=== PATIENT | male | born 1940 | race African-American/Black ===

== ENCOUNTER → 2017-10-29 | Outpatient (CLI) | payer OTHER ==
[~2017-10-29] MED LIST: ALLOPURINOL 30300 M2 PO; ASPIR 8181 MG PO; BACTRIM DS TAB1 EACH PO; IRON CHEWS15 M1 PO; MAXZIDE-25 MG1 EACH PO; MELATONIN3 MG PO; NAPROSYN500 MG PO; PRINIVIL20 MG PO; ZOCOR20 MG PO
== END ==
LOC: RAD 11:23
DX: J98.11 Atelectasis (principal); I10 Essential (primary) hypertension

== ENCOUNTER → 2017-10-30 | Outpatient (CLI) | payer OTHER | LOC: CAT 10:42 | DX: R91.8 Other nonspecific abnormal finding of lung field (principal); R59.0 Localized enlarged lymph nodes ==

== ENCOUNTER → 2017-11-25 | Outpatient (CLI) | payer OTHER | LOC: CAT 11:53 | DX: I67.82 Cerebral ischemia (principal); M47.816 Spondylosis without myelopathy or radiculopathy, lumbar region; M51.26 Other intervertebral disc displacement, lumbar region; C34.90 Malignant neoplasm of unspecified part of unspecified bronchus or lung; M25.78 Osteophyte, vertebrae; M48.061 Spinal stenosis, lumbar region without neurogenic claudication; I10 Essential (primary) hypertension ==

== ENCOUNTER 2018-01-06 09:05 | Inpatient (IN) | payer OTHER ==
[~2018-01-06] VITALS: Ht 182.9 cm; Wt 83.9 kg
--- NOTE | ~2018-01-06 | EKG ---
[place] [address] [facility] [place] [address] ELECTROCARDIOGRAM REPORT Name: ALLYSSA HATFIELD JR Room #: 170-9 ADM IN M.R.#: [id number] Admission: 01/06/18 Attend Phys: Anika Hurd Discharge: Date of : 40 Report #: [id number] THIS REPORT FOR: //name// [facility] ED Test Date: 2018-01-06 Test Time: 09:24:21 Pat Name: ALLYSSA HATFIELD Department: Room: 170 Gender: M Medical Detailist: natasha : 1940 Requested By: Faye Canchola Order Number: [id number] MD: Hermelindo Dias Measurements Intervals [place] Rate: 94 P: -3 SC: 158 QRS: -16 QRSD: 89 T: -17 QT: 341 QTc: 427 Interpretive Statements Sinus tachycardia Multiform ventricular premature complexes Left ventricular hypertrophy Compared to ECG 08/07/1991 16:20:00 Electronically Signed On 01-06-2018 13:06:36 CDT by Hermelindo Dias [email or web address] <ELECTRONICALLY SIGNED> By: Hermelindo Dias MD 01/06/18 1306 3 3 Hermelindo Dias MD /FRAN
--- NOTE | ~2018-01-06 | HC ---
[facility] [place] [address] CONSULTATION Name: ALLYSSA HATFIELD JR Room #: 200-I ADM IN M.R.#: [id number] Admission: 01/06/18 Attend Phys: Anika Hurd Discharge: Date of : 40 Report #: [id number] THIS REPORT FOR: //name// CC: Nabeel Sanchez MD REASON FOR CONSULTATION: History of lung cancer with generalized weakness. CONSULTATION REQUESTED BY: Anika Hurd M.D. HISTORY OF PRESENT ILLNESS: The patient is a very pleasant 77-year-old gentleman who I met for the first time on 12/24/2017. 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 At that time, he was having significant pain and we consulted Dr. Nabeel Yanes, Radiation Oncology for therapy. The patient began radiation therapy on 12/31/2017 and had his fourth dose on 01/03/2018. This is out of planned 10 doses. The patient reports that yesterday he had been at home and was weak enough he had a hard time getting off the toilet seat. It sounds like he has not been eating and drinking as well. He has also been not moving around. It sounds like this is not a specific localized weakness. He denies any new sensory changes. He has not had any incontinence of bowel or bladder. PAST MEDICAL HISTORY: Past history is notable for the recently diagnosed stage IV lung cancer. Note that he had had an MRI of the head on 11/25/2017 that did not show any disease there. His PET scan was on 12/20/2017 and that showed the disease in the lung and some mediastinal, subcarinal and retrocrural lymph nodes. He also has a history of hypertension, hyperlipidemia and some bladder difficulties. SOCIAL AND FAMILY HISTORY: Mother had breast cancer. Father had diabetes and blood clots. He had smoked for about 47 years, quit in 2003. Alcohol, maybe a glass of wine and 6 cans of beer periodically. He is currently retired. PHYSICAL EXAMINATION: GENERAL: The patient appears his stated age. VITAL SIGNS: His height is 6 feet or 182.8 cm. Weight is 185 pounds or 83.9 kilograms. Blood pressure is 150/80, O2 sat 98%, respirations 20, pulse 97 and temperature 100.3 orally. MOOD: The patient is slightly withdrawn and quiet and slow to answer questions, though he is methodical and intentional in his answers. HEENT: Oropharynx clear. [facility] [address] [place] [address] CONSULTATION Name: ALLYSSA HATFIELD Room #: 200-I [facility] IN M.R.#: [id number] Admission: 01/06/18 Attend Phys: Anika Hurd Discharge: Date of : 40 Report #: [id number] LUNGS: Mostly clear anteriorly. HEART: Regular rate. LYMPHATIC: No enlarged lymph nodes in the supraclavicular, cervical, axillary or inguinal region. ABDOMEN: Slightly obese. No masses. Not tender, though the patient thinks he may be constipated. EXTREMITIES: Without clubbing, cyanosis or edema. NEUROLOGIC: He seems like he is moving extremities and has normal sensation. LABORATORY DATA: Lab results here are notable for a BUN of 21, creatinine 1.3. AST is slightly high at 40. Calcium is slightly high at 10.2. Albumin was normal range at 3.4. White count 13.9, hemoglobin 12.4 and platelets 244,000. U/A was negative for nitrites and clear. MEDICATIONS: Medications in the hospital currently include flu vaccine will be given, also hydralazine p.r.n., tamsulosin 0.4 at bedtime, Senokot, S4 tabs b.i.d., Lovenox 40 mg at bedtime subq, morphine p.r.n., hydrocodone 1 tab q.4h. p.r.n., Tylenol p.r.n., zolpidem p.r.n., MiraLax p.r.n., nitroglycerin p.r.n. and Zofran p.r.n. ASSESSMENT AND PLAN: 1. Stage IV squamous cell cancer, direct invasion into the vertebral body and ribs. Recent MRI last night does not show any neural involvement. Suspect the weakness is due to deconditioning and pain. We will wish to restart radiation therapy once an outpatient. 2. Pain. Agree with current medications. He had been on prednisone with benefit and may consider restarting to see if this helps with his pain. 3. Hypertension, p.r.n. hydralazine. 4. Bladder difficulties, tamsulosin. 5. Prophylaxis, Lovenox. 6. Possible constipation, MiraLax and Senokot S. <ELECTRONICALLY SIGNED> By: Inocente Fry MD 01/08/18 0731 0931 [id number] Inocente Fry MD /nt
--- NOTE | ~2018-01-06 | HC ---
[facility] [place] [address] CONSULTATION Name: ALLYSSA HATFIELD JR Room #: 220-P [facility] IN M.R.#: [id number] Admission: 01/06/18 Attend Phys: Anika Hurd Discharge: Date of : 40 Report #: [id number] THIS REPORT FOR: //name// CC: Dipak Hurd HISTORY OF PRESENT ILLNESS: The patient is a 77-year-old male with a history of lung cancer and bilateral lower extremity weakness. When I spoke to the patient, he seemed uncertain as to whether or not he had cancer and what type of cancer he had. His came in the room later and explained to me that he had lung cancer, but he had been having weakness some time before he was actually diagnosed. She and her had downsized in 2013 and since that time, he had become more inactive; in fact, he had been having difficulty walking and had pain in his legs, some months prior to the diagnosis. He had been having difficulty getting up from the toilet, but had also just been having difficulty walking in general. His was a better historian than the patient. Apparently, the patient had generalized weakness, but had also been having chest pain related to the radiation treatment for lung cancer. PAST MEDICAL HISTORY: Stage IV invasive squamous cell carcinoma of the lung, hypertension, hyperlipidemia, gout. PAST SURGICAL HISTORY: Tonsillectomy, hemorrhoidectomy, nasal reconstruction. MEDICATIONS: Oxycodone 7.5 mg q.6h. p.r.n. pain, prednisone 40 mg daily, amlodipine 10 mg daily, tamsulosin 0.4 mg daily, torsemide 10 mg daily, tramadol 50 mg p.r.n., aspirin 81 mg daily, naproxen 500 mg b.i.d., simvastatin 5 mg at bedtime. ALLERGIES: VIOXX. PHYSICAL EXAMINATION: VITAL SIGNS: Temperature 37, pulse rate 104, respiratory rate 17, blood pressure 102/70, bedside pulse oximetry 95% on room air. LABORATORY WORK: White blood cell count 13.1, hemoglobin 11.3, hematocrit 33.6, MCV 76.6, platelet count 197,000. Urinalysis, trace blood. Chemistry: Sodium 135, potassium 3, chloride 102, carbon dioxide 26, BUN 13, creatinine 1.1, GFR 79, glucose 97, calcium 9.2, magnesium 2.2. IMAGING EXAMS: MRI of the thoracic spine showed several large right chest masses with invasion into the medial portions of the right 3rd and 4th ribs as well as the right third vertebral body. An additional mass was seen in the lower chest invading the posterior portion of the right 7th rib. MRI of the head demonstrated no acute intracranial process. [address] [address] CONSULTATION Name: ALLYSSA HATFIELD Room #: 220-P [facility] IN M.R.#: [id number] Admission: 01/06/18 Attend Phys: Anika Hurd Discharge: Date of : 40 Report #: [id number] NEUROLOGIC EXAMINATION: Cranial nerves 2-12 are grossly intact. Motor exam demonstrated symmetrical generalized weakness in the lower extremities with tone and bulk normal. Reflexes were trace throughout. Coordination demonstrated no evidence of dysmetria. IMPRESSION: I reviewed the patient's medical record. I explained to him that a CT scan of the lumbar spine showed that he had lumbar spinal stenosis and this may account for some of the symptoms he had prior to the diagnosis of lung cancer. I explained to him that spinal stenosis causes a generalized type weakness of the lower extremities and that sometimes when you walk, this causes pain and when you sit down, the pain is relieved. This may have led to just a generalized deconditioning. I explained to him that there is no evidence of cancer of the spine. He does not really have neck pain, but also admits to having some weakness in the upper extremities. For further evaluation, I have ordered an MRI of the cervical and thoracic spine and we will discuss these results with the patient tomorrow. I thank you for your kind referral of the patient. <ELECTRONICALLY SIGNED> By: Roseanne Corral DO 01/10/18 0952 [id number] [id number] Roseanne Corral DO /nt
[~2018-01-06 09:05] MED LIST changes: +DEMADEX20 MG PO; +FLOMAX0.4 MG PO; +NORVASC10 MG PO; +TRAMADOL 50 MG50 MG PO
[2018-01-06 09:06] VITALS: BP 159/104
[2018-01-06 09:26] LABS: ABSOLUTE NEUTROPHILS 12.4 thou/uL (1.4-8.2); BASOPHILS 0.3 % (0.0-2.0); EOSINOPHILS 0.1 % (0.0-3.0); HEMATOCRIT 37.2 % (42.0-52.0); HEMOGLOBIN 12.4 gm/dL (14.0-18.0); LYMPHOCYTES 4.4 % (24.0-44.0); MCH 25.6 pg (26.0-34.0); MCHC 33.4 g/dL (28.0-37.0); MCV 76.7 fL (80.0-100.0); PLATELET COUNT 244 thou/uL (150-400); POLYS 89.2 % (36.0-66.0); RBC 4.85 mil/uL (4.50-6.00); RDW 15.9 % (10.5-14.5); WBC 13.9 thou/uL (4.0-11.0)
[2018-01-06 09:33] LABS: ANION GAP 8 mmol/L (7-16); BUN 21 mg/dL (7-18); CALCIUM 10.2 mg/dL (8.5-10.1); CHLORIDE 102 mmol/L (98-107); CO2 29 mmol/L (21-32); CREATININE 1.3 mg/dL (0.7-1.3); GLUCOSE 124 mg/dL (74-106); POTASSIUM 3.3 mmol/L (3.5-5.1); SODIUM 139 mmol/L (136-145)
[2018-01-06 09:41] LABS: ALBUMIN 3.4 g/dL (3.4-5.0); SGOT 40 U/L (15-37); SGPT 20 U/L (30-65); TOTAL BILIRUBIN 1.1 mg/dL (<0.1-1.0); TROPONIN-I <0.06 ng/mL (<0.06)
[2018-01-06 10:31] LABS: URINE BILIRUBIN NEGATIVE (Negative); URINE BLOOD TRACE (Negative); URINE CLARITY CLEAR; URINE COLOR YELLOW; URINE GLUCOSE-RANDOM* NEGATIVE (Negative); URINE KETONES NEGATIVE (Negative); URINE LEUKOCYTES-REFLEX NEGATIVE (Negative); URINE NITRITE-REFLEX NEGATIVE (Negative); URINE PROTEIN (DIPSTICK) NEGATIVE (Negative); URINE UROBILINOGEN 0.2 E.U./dl (0.2-1.0)
[2018-01-06 11:18] VITALS: BP 159/104
[2018-01-06] MEDS ORDERED: OXYCODONE HCL15 MG PO (14:48)
[2018-01-06] MEDS ORDERED: PREDNISONE 10 M10 M1 PO (14:49)
[2018-01-06 15:26] VITALS: BP 182/106
[2018-01-06 19:31] VITALS: BP 181/106
[2018-01-07 04:00] VITALS: BP 170/92
[2018-01-07 07:51] VITALS: BP 150/88
[2018-01-07 12:05] VITALS: BP 113/80
[2018-01-07 13:28] LABS: HEMATOCRIT 33.6 % (42.0-52.0); HEMOGLOBIN 11.3 gm/dL (14.0-18.0); MCH 25.7 pg (26.0-34.0); MCHC 33.5 g/dL (28.0-37.0); MCV 76.6 fL (80.0-100.0); RBC 4.39 mil/uL (4.50-6.00); RDW 15.5 % (10.5-14.5); WBC 13.1 thou/uL (4.0-11.0)
[2018-01-07 13:43] LABS: ALBUMIN 2.6 g/dL (3.4-5.0); CALCIUM 9.5 mg/dL (8.5-10.1); CREATININE 1.2 mg/dL (0.7-1.3); TOTAL BILIRUBIN 1.9 mg/dL (<0.1-1.0); TOTAL PROTEIN 6.8 g/dL (6.4-8.2)
[2018-01-07 15:07] VITALS: BP 136/83
[2018-01-07 17:25] LABS: CALCIUM 9.2 mg/dL (8.5-10.1); CREATININE 1.1 mg/dL (0.7-1.3); MAGNESIUM 2.2 mg/dL (1.8-2.4)
[2018-01-07 19:23] VITALS: BP 144/88
[2018-01-07 22:44] VITALS: BP 144/88
[2018-01-08 03:56] VITALS: BP 163/98
[2018-01-08 12:25] VITALS: BP 102/70
[2018-01-08 19:28] VITALS: BP 125/83
[2018-01-09 03:37] LABS: ALBUMIN 2.5 g/dL (3.4-5.0); CREATININE 1.1 mg/dL (0.7-1.3); MAGNESIUM 2.1 mg/dL (1.8-2.4); PHOSPHORUS 2.4 mg/dL (2.5-4.9); POTASSIUM 3.7 mmol/L (3.5-5.1)
[2018-01-09 05:16] VITALS: BP 187/114
[2018-01-09 06:30] VITALS: BP 172/102
[2018-01-09 08:54] VITALS: BP 168/100
[2018-01-09 12:32] VITALS: BP 148/80
[2018-01-09 20:24] VITALS: BP 149/108
[2018-01-09 23:30] VITALS: BP 177/108
[2018-01-10 04:00] VITALS: BP 183/111; BP 195/125
[2018-01-10 05:00] VITALS: BP 169/99
[2018-01-10 08:00] VITALS: BP 141/93
[2018-01-10] MEDS ORDERED: OXYCODONE HCL15 MG PO (09:44)
[2018-01-10] MEDS ORDERED: FLOMAX0.4 MG PO (09:44)
[2018-01-10] MEDS ORDERED: MIRALAX17 GM PO (09:44)
== END 2018-01-10 18:35 | DRG 871 ==
LOC: ER 09:05 → SICU 11:10 → 2N 11:10 → EROBS 11:10 → 2N 15:06 → SICU 01-09 22:39
PROVIDERS: Hospitalist; Internal Medicine Hematology & Oncology; Physician Assistant
DX: A41.9 Sepsis, unspecified organism (principal); E43 Unspecified severe protein-calorie malnutrition; C34.91 Malignant neoplasm of unspecified part of right bronchus or lung; G82.20 Paraplegia, unspecified; C79.51 Secondary malignant neoplasm of bone; R65.10 Systemic inflammatory response syndrome (SIRS) of non-infectious origin without acute organ dysfunction; N30.90 Cystitis, unspecified without hematuria; E78.5 Hyperlipidemia, unspecified; Z87.891 Personal history of nicotine dependence; K59.00 Constipation, unspecified; E87.6 Hypokalemia; F03.90 Unspecified dementia, unspecified severity, without behavioral disturbance, psychotic disturbance, mood disturbance, and anxiety; F39 Unspecified mood [affective] disorder; M48.00 Spinal stenosis, site unspecified; M10.9 Gout, unspecified; I10 Essential (primary) hypertension; Z88.8 Allergy status to other drugs, medicaments and biological substances; Z80.3 Family history of malignant neoplasm of breast; Z83.3 Family history of diabetes mellitus; Z83.2 Family history of diseases of the blood and blood-forming organs and certain disorders involving the immune mechanism; Z28.21 Immunization not carried out because of patient refusal
CPT/HCPCS: 10194; 15002